=== PATIENT | male | born 1950 | race Caucasian/White ===

== ENCOUNTER 2017-03-17 06:44 | Day surgery (SDC) | payer MEDICARE, OTHER ==
[2017-03-13 10:33] VITALS: BMI 27.3
[~2017-03-17 06:44] MED LIST: LACTATED RINGERS 1,000 ML IV SCH
[2017-03-17 07:24] VITALS: TEMP 97.1
[2017-03-17 07:31] LABS: Glucose,Whole Blood 169 mg/dL (75-99)
[2017-03-17] MEDS ORDERED: LIDOCAINE 1% INJ 10MG/ML (20 ML MDV) ONE (07:54)
[2017-03-17] MEDS ORDERED: PROPOFOL 10 MG/ML 20 ML VIAL IV ONE (07:54)
--- NOTE | 2017-03-17 08:38 | P.PCN ---
Date of Procedure: 03/17/17 Procedure(s) Performed: Procedure: Total colonoscopy. Preoperative diagnosis: Screening for neoplasia, patient has history of polyps and family history of colon cancer. Postoperative diagnosis: Sigmoid diverticulosis with no evidence of acute diverticulitis, strictures, polyps or cancer. Preparation: HalfLytely prep. Sedation: Was provided by anesthesia. Brief clinical history: The patient is a 66-year-old male who is referred for this evaluation for screening for neoplasia. He has history of polyps and his last colonoscopy was in 2010. There is family history of colon cancer in his father who was diagnosed at age 87. At this time, the patient has no abdominal complaints, bleeding or anemia. Procedure: With the patient on his left lateral decubitus position and after informed consent and adequate sedation, the perianal area was inspected and it did not show any fissures or fistulas. There were no masses felt on digital rectal examination. The Olympus CFQ 160L video colonoscope was then inserted in the rectum in the usual fashion and advanced to the cecum. The preparation was good. The mucosa appeared healthy. Several diverticular orifices were seen scattered in the sigmoid with no evidence of acute diverticulitis or strictures. No polyps or tumors were seen. I retroflexed endoscope in the rectum before the endoscope was withdrawn. The patient tolerated the procedure well. Plan: The patient was reassured. Discussed dietary measures. He will follow up with you as planned and I recommended a repeat exam in 5 years.
[2017-03-17 08:40] VITALS: RESP 16
[2017-03-17 08:49] LABS: Glucose,Whole Blood 162 mg/dL (75-99)
[2017-03-17 09:52] VITALS: BP 141/76; PULSE 88
== END 2017-03-17 09:35 | disposition home or self-care (01) ==
LOC: ORWHC2ENDO 06:44
DX: Z12.11 Encounter for screening for malignant neoplasm of colon (principal); K57.30 Diverticulosis of large intestine without perforation or abscess without bleeding; Z86.010 Personal history of colon polyps; Z80.0 Family history of malignant neoplasm of digestive organs; I10 Essential (primary) hypertension; E78.5 Hyperlipidemia, unspecified; F17.200 Nicotine dependence, unspecified, uncomplicated; E11.9 Type 2 diabetes mellitus without complications; Z79.84 Long term (current) use of oral hypoglycemic drugs; Z85.828 Personal history of other malignant neoplasm of skin; Z79.899 Other long term (current) drug therapy
CPT/HCPCS: J2001; J2704; G0105

== ENCOUNTER 2018-10-10 14:28 | Emergency (ER) | payer MEDICARE, OTHER ==
[2018-10-10 14:36] VITALS: TEMP 98.1
[2018-10-10 14:39] LABS: Glucose,Whole Blood 184 mg/dL (75-99)
[2018-10-10] MEDS ORDERED: SODIUM CHLORIDE 0.9% 1,000 ML IV ONE (15:08)
--- NOTE | 2018-10-10 15:21 | ED ---
General Adult HPI - General Chief complaint: Recheck/Abnormal Lab/Rx Stated complaint: Elevated BS Time Seen by Provider: 10/10/18 14:54 Source: patient Mode of arrival: ambulatory Limitations: no limitations - History of Present Illness Initial comments: 68-year-old male patient presents to the emergency department today for complaints of elevated blood sugar. Patient states that over the last couple days of sugars have been reaching around 350. Patient states that he is also had mild headaches but has had that before when he has had elevated sugars. He denies any abdominal pain, nausea, or vomiting. Denies any constipation or diarrhea. Patient states he feels well. He does admit that he doesn't check his blood sugar regularly. His primary care physician did give him prescription for new blood sugar medication but he has not yet started this. Patient denies any recent rash, fever, chills, shortness breath, chest pain, abdominal pain, back pain, numbness, tingling, dizziness, weakness, hematuria, dysuria, urinary urgency, urinary frequency, headache, visual changes, or any other complaints. - Related Data Home Medications Medication Instructions Recorded Confirmed Gabapentin 900 mg PO BID 03/13/17 03/17/17 Glimepiride [Amaryl] 8 mg PO AC-BRKFST 03/13/17 03/17/17 Losartan [Cozaar] 50 mg PO DAILY 03/13/17 03/17/17 Pravastatin Sodium [Pravachol] 10 mg PO Q2D 03/13/17 03/17/17 metFORMIN HCL 1,000 mg PO BID 03/13/17 03/17/17 Allergies Allergy/AdvReac Type Severity Reaction Status Date / Time No Known Allergies Allergy Verified 10/10/18 14:36 Review of Systems ROS Statement: Those systems with pertinent positive or pertinent negative responses have been documented in the HPI. ROS Other: All systems not noted in ROS Statement are negative. Past Medical History Past Medical History: Cancer, Diabetes Mellitus, Hyperlipidemia, Hypertension Additional Past Medical History / Comment(s): HX SKIN CANCER History of Any Multi-Drug Resistant Organisms: None Reported Additional Past Surgical History / Comment(s): COLONOSCOPY. BILAT CATARACTS. LT CAROTID ENDATERECTOMY. PENILE IMPLANT Past Anesthesia/Blood Transfusion Reactions: No Reported Reaction Past Psychological History: No Psychological Hx Reported Smoking Status: Current every day smoker Past Alcohol Use History: None Reported Past Drug Use History: None Reported - Past Family History Father Family Medical History: Cancer General Exam Limitations: no limitations General appearance: alert, in no apparent distress, other (This is a well- developed, well-nourished adult male patient in no acute distress. Vital signs upon presentation are temperature 98.1F, pulse 98, respirations 20, blood pressure 115/68, pulse ox 95% on room air.) ENT exam: Present: normal exam, normal oropharynx, mucous membranes moist Respiratory exam: Present: normal lung sounds bilaterally. Absent: respiratory distress, wheezes, rales, rhonchi, stridor Cardiovascular Exam: Present: regular rate, normal rhythm, normal heart sounds. Absent: systolic murmur, diastolic murmur, rubs, gallop, clicks GI/Abdominal exam: Present: soft, normal bowel sounds. Absent: distended, tenderness, guarding, rebound, rigid Neurological exam: Present: alert, oriented X3, CN II-XII intact Psychiatric exam: Present: normal affect, normal mood Skin exam: Present: warm, dry, intact, normal color. Absent: rash Course Vital Signs 10/10/18 14:33 Temperature 98.1 F Pulse Rate 98 Respiratory 20 Rate Blood Pressure 115/68 O2 Sat by Pulse 95 Oximetry Medical Decision Making - Medical Decision Making 68-year-old male patient presents to the emergency department today for evaluation of elevated blood sugar. Upon arrival patient's blood sugar was 184 , did order basic labs. There was a mixup with the labwork patient did not want to wait for results. Blood sugar was rechecked after receiving IV fluids and was down to 107. Patient had no other symptoms and actually reported feeling well. Physical exam is unremarkable. Patient be discharged home to follow-up with his primary care physician. He did receive a prescription for diabetic medication he is to call his physician for further instructions regarding this tomorrow. Return parameters discussed in detail. He verbalizes understanding and agrees with this plan. - Lab Data Lab Results 10/10/18 10/10/18 Range/Units 14:31 16:43 POC Glucose (mg/dL) 184 H 107 H (75-99) mg/dL POC Glu Edger Runner ID Mei Lopez Disposition Clinical Impression: Hyperglycemia Disposition: HOME SELF-CARE Condition: Good Instructions: Diabetic Hyperglycemia (ED) Additional Instructions: Monitor your blood sugar closely. Call your primary care physician's office in the morning to ask about your diabetic medications. Increase fluids. Monitor your diet. Return immediately for any new, worsening, or concerning symptoms Is patient prescribed a controlled substance at d/c from ED?: No Referrals: Gabe Vela DO [Primary Care Provider] - 1-2 days Time of Disposition: 16:47
[2018-10-10 16:48] LABS: Glucose,Whole Blood 107 mg/dL (75-99)
[2018-10-10 17:05] VITALS: BP 139/86; PULSE 84; RESP 16
[2018-10-10 17:22] LABS: Basophils # (A) 0.1 k/uL (0-0.2); Basophils % (A) 1 %; Eosinophils # (A) 0.3 k/uL (0-0.7); Eosinophils % (A) 2 %; HCT 44.2 % (39.0-53.0); HGB 15.2 gm/dL (13.0-17.5); Lymphocytes # (A) 4.3 k/uL (1.0-4.8); Lymphocytes % (A) 42 %; MCH 32.9 pg (25.0-35.0); MCHC 34.3 g/dL (31.0-37.0); MCV 96.1 fL (80.0-100.0); Mean Platelet Volume 7.3; Monocytes # (A) 0.6 k/uL (0-1.0); Monocytes % (A) 5 %; Neutrophils % (A) 48 %; Platelet Count 248 k/uL (150-450); RDW 13.1 % (11.5-15.5); WBC 10.4 k/uL (3.8-10.6)
[2018-10-10 17:30] LABS: Appearance,Urine Clear (Clear); Bilirubin,Urine Negative (Negative); Blood,Urine Negative (Negative); Color,Urine Light Yellow; Glucose,Urine (UA) Negative (Negative); Ketones,Urine Negative (Negative); Leukocyte Esterase,Urine Negative (Negative); Nitrite,Urine Negative (Negative); PH, Urine 6.5 (5.0-8.0); Protein,Urine Negative (Negative); Specific Gravity,Urine 1.003 (1.001-1.035); Urobilinogen,Urine <2.0 mg/dL (<2.0)
[2018-10-10 17:33] LABS: Anion Gap 12 mmol/L; Blood Urea Nitrogen 22 mg/dL (9-20); Calcium 9.7 mg/dL (8.4-10.2); Carbon Dioxide 22 mmol/L (22-30); Chloride 105 mmol/L (98-107); Glucose 148 mg/dL (74-99); Potassium 4.5 mmol/L (3.5-5.1); Sodium 139 mmol/L (137-145)
== END 2018-10-10 17:00 | disposition home or self-care (01) ==
LOC: EC 14:28
DX: E11.65 Type 2 diabetes mellitus with hyperglycemia (principal); I10 Essential (primary) hypertension; E78.5 Hyperlipidemia, unspecified; Z79.84 Long term (current) use of oral hypoglycemic drugs; Z79.899 Other long term (current) drug therapy; Z85.828 Personal history of other malignant neoplasm of skin
CPT/HCPCS: 36415; 80048; 81003; 85025; 96360; 99283

== ENCOUNTER → 2018-10-11 | Outpatient (CLI) | payer MEDICARE, OTHER ==
--- NOTE | 2018-10-11 08:18 | CT ---
EXAMINATION TYPE: CT lumbar spine wo con DATE OF EXAM: 10/11/2018 7:39 AM COMPARISON: None HISTORY: Low back pain, numbness to Lt leg CT DLP: 748.6 mGycm Automated exposure control for dose reduction was used. Unenhanced CT of the lumbar spine was performed. Bone and soft tissue window settings are submitted as well as coronal and sagittal reconstructions. L1-L2: Hypertrophic change of the facets and circumferential disc bulging. No foraminal encroachment or canal stenosis. L2-L3: Facet arthropathy and circumferential disc bulging. No canal stenosis or foraminal encroachmen t. L3-L4: Diffuse disc bulging with hypertrophy of the facets and ligamentum flavum. More advanced facet arthropathy noted. Mild bilateral foraminal encroachment and mild central stenosis suspected. L4-L5: Small focal central disc protrusion with displacement of the thecal sac. There is facet arthro mayra. Neural foramina demonstrate mild narrowing bilaterally with hypertrophic change of the facets. . L5-S1: Normal disc space height. No disc herniation protrusion or central stenosis. Facet joint arth ropathy. No evidence for foraminal encroachment. Atherosclerotic change of the vasculature within the infrarenal abdominal aortic aneurysm which is no t entirely included in the [id number] but measures at least 3.2 cm. Dedicated ultrasound or abdomi nal CT recommended. Mild multilevel hypertrophic change and degenerative disc disease. IMPRESSION: 1. Multilevel hypertrophic change and degenerative disc disease with multilevel facet arthropathy and disc bulging resulting in mild central stenosis L3-L4 with mild bilateral foraminal encroachment. 2. Small focal central disc protrusion with mild displacement of thecal sac at L4-L5. 3. There is a abdominal aortic aneurysm which is incompletely imaged. Recommend follow-up ultrasound or CT scan. A Yellow level critical message alert has been initiated for Derick Dockery MD via the [facility] Critical Results System on 10/11/2018 8:14 AM. This message alert has been sent to Derick hernandez MD via the preferences provided by the clinician for the receipt of Radiology Critical Findings. Message ID [id number].
== END | disposition home or self-care (01) ==
LOC: RADCTMAIN 07:24
PROVIDERS: ATTEND Physical Medicine & Rehabilitation
DX: M48.061 Spinal stenosis, lumbar region without neurogenic claudication (principal); M51.26 Other intervertebral disc displacement, lumbar region; M51.36 Other intervertebral disc degeneration, lumbar region; M46.96 Unspecified inflammatory spondylopathy, lumbar region; M53.86 Other specified dorsopathies, lumbar region
CPT/HCPCS: 72131

== ENCOUNTER 2019-06-08 13:32 | Emergency (ER) | payer MEDICARE, OTHER ==
[2019-06-08 13:43] VITALS: TEMP 97.9
[2019-06-08 14:36] LABS: Basophils % (A) 0 %; Eosinophils # (A) 0.2 k/uL (0-0.7); Eosinophils % (A) 1 %; HCT 46.6 % (39.0-53.0); Lymphocytes # (A) 3.3 k/uL (1.0-4.8); Lymphocytes % (A) 20 %; MCHC 32.2 g/dL (31.0-37.0); MCV 99.5 fL (80.0-100.0); Macrocytosis Slight; Mean Platelet Volume 6.3; Monocytes # (A) 0.9 k/uL (0-1.0); Monocytes % (A) 5 %; Neutrophils # (A) 11.9 k/uL (1.3-7.7); Neutrophils % (A) 72 %; Platelet Count 287 k/uL (150-450); RBC 4.69 m/uL (4.30-5.90); RDW 14.5 % (11.5-15.5); WBC 16.5 k/uL (3.8-10.6)
[2019-06-08 14:45] LABS: Albumin 4.4 g/dL (3.5-5.0); Calcium 9.5 mg/dL (8.4-10.2); Potassium 4.2 mmol/L (3.5-5.1); Total Bilirubin 0.7 mg/dL (0.2-1.3)
[2019-06-08 14:49] LABS: Appearance,Urine Clear (Clear); Bilirubin,Urine Negative (Negative); Blood,Urine Trace (Negative); Color,Urine Yellow; Glucose,Urine (UA) Negative (Negative); Ketones,Urine Negative (Negative); Leukocyte Esterase,Urine Negative (Negative); Mucus,Urine Rare /hpf; Nitrite,Urine Negative (Negative); PH, Urine 5.5 (5.0-8.0); Protein,Urine Negative (Negative); RBC,Urine 1 /hpf (0-5); Specific Gravity,Urine 1.012 (1.001-1.035); Squamous Epithelial Cell,Urine <1 /hpf (0-4); Urobilinogen,Urine <2.0 mg/dL (<2.0); WBC,Urine 2 /hpf (0-5)
--- NOTE | 2019-06-08 14:57 | XR ---
EXAMINATION TYPE: XR KUB DATE OF EXAM: 06/08/2019 COMPARISON: NONE HISTORY: Abdominal pain predominantly in the right lower quadrant for approximately 2 days. TECHNIQUE: Upright abdominal radiograph was obtained FINDINGS: There are scattered air-fluid levels throughout the abdomen within prominent loops of small bowel measuring up to 3.0 cm, upper limits of normal. These although are seen within the abdomen pre dominantly within the right lower quadrant. Lung bases are well aerated. Osseous structures are gross ly intact with moderate degenerative change at the lumbosacral junction. Mild degree colonic fecal st asis of the left hemicolon. No gross evidence of pneumoperitoneum. IMPRESSION: Scattered air-fluid levels throughout prominent loops of small bowel may relate to small bowel ileus or early small bowel obstruction.
[2019-06-08 15:32] LABS: Glucose,Whole Blood 87 mg/dL (75-99)
--- NOTE | 2019-06-08 15:33 | CT ---
EXAMINATION TYPE: CT abdomen pelvis w con DATE OF EXAM: 06/08/2019 COMPARISON: NONE HISTORY: 68-year-old male RLQ and suprapubic pain for 3-4 days TECHNIQUE: Contiguous axial scanning of the abdomen and pelvis following administration of 100 ml Iso familia 300 IV contrast. Delayed images through the kidneys and coronal/sagittal reconstructions perform ed. CT DLP: 953.6 mGycm Automated exposure control for dose reduction was used. FINDINGS: Heart normal size without pericardial effusion. Coronary vessel calcifications are present in remarka ble for coronary artery disease. Subpleural reticular changes in the visualized lower lungs suggests interstitial fibrosis. No evi h oneycombing. Some scattered groundglass is also demonstrated. Tiny hiatal hernia. No focal liver lesion or biliary ductal dilatation. Portal venous system is patent. Gallbladder, adrenal glands, spleen, and pancreas appear within normal limits. A few scattered subcentimeter hypodensities in both kidneys too small for accurate CT characterizatio n, likely tiny cysts. There is an area of rounded hypodensity within the lateral right kidney best seen on delayed images, refer to axial image 43. No dilated small bowel, free fluid, or free air. No mesenteric or retroperitoneal lymphadenopathy. There is liquid stool seen throughout the colon with moderate generalized wall thickening and scatter ed mucosal hyperemia extending from the cecum to the distal sigmoid. Moderate atherosclerotic changes within the abdominal aorta and iliac arteries with fusiform aneurysm measuring up to 5.0 x 3.7 cm and a more focal saccular aneurysm from the posterior wall at this leve l measuring 1.9 x 1.7 cm, axial image 50 and sagittal image 61. Moderate to severe atherosclerotic calcifications within the iliac arteries. Bladder is distended. Fluid reservoir just deep to the left inguinal ring. The reservoir is distended up to 5.5 cm and has some mass effect onto the anterior left lateral wall of the bladder. Otherwise, no abnormal fluid collection in pelvis or pelvic lymphadenopathy. Bones: Mild degenerative changes at the hips. Right L5 hemisacralization. Mild degenerative disc dise ase with bulging discs at multiple levels. Facet arthropathy mid to lower lumbar spine. IMPRESSION: 1. Rounded hypovascular area lateral right kidney, apparent on the delayed kidney images. This appear ance can be seen in setting of pyelonephritis. Clinically correlate. 2. Moderate wall thickening of the colon extending from the cecum to the distal sigmoid along with li quid stool. Findings compatible with a nonspecific infectious or inflammatory colitis. 3. Some reticulations and groundglass in the lower lungs could represent chronic interstitial fibrosi s or an interstitial pneumonitis. Clinically correlate.
[2019-06-08 15:34] VITALS: BP 136/72; PULSE 67; RESP 18
[2019-06-08] MEDS ORDERED: ACET/COD 300 MG/30 MG STARTER PACK 6 TAB BTL PO STA (16:04)
[2019-06-08] MEDS ORDERED: MORPHINE SULFATE 2 MG/ML SYRINGE IVP STA (16:04)
--- NOTE | 2019-06-08 16:06 | ED ---
Abdominal Pain HPI - General Chief Complaint: Abdominal Pain Stated Complaint: abd pain Time Seen by Provider: 06/08/19 14:10 Source: patient Mode of arrival: ambulatory Limitations: no limitations - History of Present Illness Initial Comments: 68-year-old male presenting today for chief complaint of lower abdominal pain. Patient states that he's had lower abdominal pain on and off for the past 3-4 days. He states he does have history of kidney stones but this pain does not feel similar he denies back pain. Patient states he does have history of d iverticulitis. Patient states he did have diarrhea for the past 2 days he states he does have somewhat of chronic diarrhea. Patient denies fever or recent travel denies melena hematochezia or vomiting. She states the pain is not constant and comes and goes and is of the lower abdomen he denies any testicular pain or swelling. Patient states the pain persisted today he thought it would be best he presented [facility] sure it wasn't "cancer or something". Remaining review of systems negative patient appears well no signs of acute distress denies any current pain. - Related Data Home Medications Medication Instructions Recorded Confirmed Gabapentin 600 mg PO TID 03/13/17 06/08/19 Glimepiride [Amaryl] 4 mg PO AC-BID 03/13/17 06/08/19 metFORMIN HCL 1,000 mg PO BID 03/13/17 06/08/19 Losartan Potassium 100 mg PO DAILY 06/08/19 06/08/19 Previous Rx's Medication Instructions Recorded Ciprofloxacin HCl [Cipro] 500 mg PO Q12H 7 Days #14 tab 06/08/19 metroNIDAZOLE [Flagyl] 500 mg PO Q8HR 7 Days #21 tab 06/08/19 Allergies Allergy/AdvReac Type Severity Reaction Status Date / Time No Known Allergies Allergy Verified 06/08/19 14:01 Review of Systems ROS Statement: Those systems with pertinent positive or pertinent negative responses have been documented in the HPI. ROS Other: All systems not noted in ROS Statement are negative. Past Medical History Past Medical History: Cancer, Diabetes Mellitus, Hyperlipidemia, Hypertension Additional Past Medical History / Comment(s): HX SKIN CANCER, AAA History of Any Multi-Drug Resistant Organisms: None Reported Additional Past Surgical History / Comment(s): COLONOSCOPY. BILAT CATARACTS. LT CAROTID ENDATERECTOMY. PENILE IMPLANT Past Anesthesia/Blood Transfusion Reactions: No Reported Reaction Past Psychological History: No Psychological Hx Reported Smoking Status: Current every day smoker Past Alcohol Use History: None Reported Past Drug Use History: None Reported - Past Family History Father Family Medical History: Cancer General Exam - General Exam Comments Initial Comments: General: The patient is awake and alert, in no distress, and does not appear acutely ill. Eye: Pupils are equal, round and reactive to light, extra-ocular movements are intact. No nystagmus. There is normal conjunctiva bilaterally. No signs of icterus. Cardiovascular: There is a regular rate and rhythm. No murmur, rub or gallop is appreciated. Respiratory: Lungs are clear to auscultation, respirations are non-labored, breath sounds are equal. No wheezes, stridor, rales, or rhonchi. Gastrointestinal: Soft, non-distended, there is mild tenderness to palpation deeply of the lower abdomen remaining abdomen including the right upper and left upper and epigastric region without tenderness. without masses or organomegaly noted. There is no rebound or guarding present. No CVA tenderness. Bowel sounds are unremarkable. Musculoskeletal: Normal ROM, no tenderness. Strength 5/5. Sensation intact. Pulses equal bilaterally 2+. Neurological: A&O x 3. CN II-XII intact, There are no obvious motor or sensory deficits. Coordination appears grossly intact. Speech is normal. Skin: Skin is warm and dry and no rashes or lesions are noted. No LE edema. Psychiatric: Cooperative, appropriate mood & affect, normal judgment. Limitations: no limitations Course Vital Signs 06/08/19 06/08/19 13:41 15:30 Temperature 97.9 F Pulse Rate 92 67 Respiratory 16 18 Rate Blood Pressure 125/63 136/72 O2 Sat by Pulse 96 98 Oximetry Medical Decision Making - Medical Decision Making Very well-appearing 68-year-old male. Complaints of lower abdominal pain, infectious versus inflammatory changes are noted of the distal colon on examination. I feel this is consistent with patient's area of pain. Patient has leukocytosis. No fever. Signs and laboratory studies otherwise are within acceptable limits. After discussing the case reviewing imaging studies with attending provider Dr. Agrawal we feel patient is stable for discharge with antibiotic regimen close primary care follow-up in GI consultation. Patient is agreeable to this plan. Return parameters were discussed. I did discuss incidental findings of possible kidney cyst, lung lesions as well as abdominal aortic aneurysm which patient states he monitors every [address] Stephon aguilera And pt is aware. Patient discharged appearing well - Lab Data Result diagrams: 06/08/19 13:55 06/08/19 13:55 Lab Results 06/08/19 06/08/19 06/08/19 Range/Units 13:55 13:55 13:55 WBC 16.5 H (3.8-10.6) k/uL RBC 4.69 (4.30-5.90) m/uL Hgb 15.0 (13.0-17.5) gm/dL Hct 46.6 (39.0-53.0) % MCV 99.5 (80.0-100.0) fL MCH 32.0 (25.0-35.0) pg MCHC 32.2 (31.0-37.0) g/dL RDW 14.5 (11.5-15.5) % Plt Count 287 (150-450) k/uL Neutrophils % 72 % Lymphocytes % 20 % Monocytes % 5 % Eosinophils % 1 % Basophils % 0 % Neutrophils # 11.9 H (1.3-7.7) k/uL Lymphocytes # 3.3 (1.0-4.8) k/uL Monocytes # 0.9 (0-1.0) k/uL Eosinophils # 0.2 (0-0.7) k/uL Basophils # 0.0 (0-0.2) k/uL Macrocytosis Slight Sodium 142 (137-145) mmol/L Potassium 4.2 (3.5-5.1) mmol/L Chloride 109 H (98-107) mmol/L Carbon Dioxide 24 (22-30) mmol/L Anion Gap 9 mmol/L BUN 19 (9-20) mg/dL Creatinine 1.00 (0.66-1.25) mg/dL Est GFR (CKD-EPI)AfAm 88 (>60 ml/min/1.73 sqM) Est GFR (CKD-EPI)NonAf 76 (>60 ml/min/1.73 sqM) Glucose 53 L (74-99) mg/dL POC Glucose (mg/dL) (75-99) mg/dL POC Glu Coroner Forensic Technician ID Calcium 9.5 (8.4-10.2) mg/dL Total Bilirubin 0.7 (0.2-1.3) mg/dL AST 18 (17-59) U/L ALT 16 L (21-72) U/L Alkaline Phosphatase 87 (38-126) U/L Total Protein 8.0 (6.3-8.2) g/dL Albumin 4.4 (3.5-5.0) g/dL Amylase 75 (30-110) U/L Lipase 80 (23-300) U/L Urine Color Yellow Urine Appearance Clear (Clear) Urine pH 5.5 (5.0-8.0) Ur Specific [place] 1.012 (1.001-1.035) Urine Protein Negative (Negative) Urine Glucose (UA) Negative (Negative) Urine Ketones Negative (Negative) Urine Blood Trace H (Negative) Urine Nitrite Negative (Negative) Urine Bilirubin Negative (Negative) Urine Urobilinogen <2.0 (<2.0) mg/dL Ur Leukocyte Esterase Negative (Negative) Urine RBC 1 (0-5) /hpf Urine WBC 2 (0-5) /hpf Ur Squamous Epith Cells <1 (0-4) /hpf Urine Mucus Rare H (None) /hpf 06/08/19 Range/Units 15:30 WBC (3.8-10.6) k/uL RBC (4.30-5.90) m/uL Hgb (13.0-17.5) gm/dL Hct (39.0-53.0) % MCV (80.0-100.0) fL MCH (25.0-35.0) pg MCHC (31.0-37.0) g/dL RDW (11.5-15.5) % Plt Count (150-450) k/uL Neutrophils % % Lymphocytes % % Monocytes % % Eosinophils % % Basophils % % Neutrophils # (1.3-7.7) k/uL Lymphocytes # (1.0-4.8) k/uL Monocytes # (0-1.0) k/uL Eosinophils # (0-0.7) k/uL Basophils # (0-0.2) k/uL Macrocytosis Sodium (137-145) mmol/L Potassium (3.5-5.1) mmol/L Chloride (98-107) mmol/L Carbon Dioxide (22-30) mmol/L Anion Gap mmol/L BUN (9-20) mg/dL Creatinine (0.66-1.25) mg/dL Est GFR (CKD-EPI)AfAm (>60 ml/min/1.73 sqM) Est GFR (CKD-EPI)NonAf (>60 ml/min/1.73 sqM) Glucose (74-99) mg/dL POC Glucose (mg/dL) 87 (75-99) mg/dL POC Glu Coroner Forensic Technician ID Calcium (8.4-10.2) mg/dL Total Bilirubin (0.2-1.3) mg/dL AST (17-59) U/L ALT (21-72) U/L Alkaline Phosphatase (38-126) U/L Total Protein (6.3-8.2) g/dL Albumin (3.5-5.0) g/dL Amylase (30-110) U/L Lipase (23-300) U/L Urine Color Urine Appearance (Clear) Urine pH (5.0-8.0) Ur Specific [place] (1.001-1.035) Urine Protein (Negative) Urine Glucose (UA) (Negative) Urine Ketones (Negative) Urine Blood (Negative) Urine Nitrite (Negative) Urine Bilirubin (Negative) Urine Urobilinogen (<2.0) mg/dL Ur Leukocyte Esterase (Negative) Urine RBC (0-5) /hpf Urine WBC (0-5) /hpf Ur Squamous Epith Cells (0-4) /hpf Urine Mucus (None) /hpf Disposition Clinical Impression: Abdominal aortic aneurysm (AAA) 3.0 cm to 5.5 cm in diameter in male, Colitis, Kidney lesion, Abdominal pain, Diarrhea Disposition: HOME SELF-CARE Condition: Good Instructions (If sedation given, give patient instructions): Abdominal Pain (ED) Additional Instructions: Please use medication as discussed. Please follow-up with family doctor in the next 2 days, please request records. Follow- up with both GI and Dr. Landry (as scheduled for Dr. Galindo). Please return to emergency room if the symptoms in crease or worsen or for any other concerns, more consistent, persistent or increasing pain--any concerning symptoms. Prescriptions: Ciprofloxacin HCl [Cipro] 500 mg PO Q12H 7 Days #14 tab metroNIDAZOLE [Flagyl] 500 mg PO Q8HR 7 Days #21 tab Is patient prescribed a controlled substance at d/c from ED?: No Referrals: Gabe Vela DO [Primary Care Provider] - 1-2 days Sabi Stein MD [STAFF PHYSICIAN] - 1-2 days Time of Disposition: 16:06
== END 2019-06-08 16:40 | disposition home or self-care (01) ==
LOC: EC 13:32
DX: I71.4 Abdominal aortic aneurysm, without rupture (principal); K52.9 Noninfective gastroenteritis and colitis, unspecified; N28.9 Disorder of kidney and ureter, unspecified; D72.829 Elevated white blood cell count, unspecified; E11.9 Type 2 diabetes mellitus without complications; I10 Essential (primary) hypertension; F17.200 Nicotine dependence, unspecified, uncomplicated; Z79.84 Long term (current) use of oral hypoglycemic drugs; Z79.899 Other long term (current) drug therapy; Z85.828 Personal history of other malignant neoplasm of skin
CPT/HCPCS: 36415; 80053; 82150; 83690; 85025; 81001; 74018; 74177; 99284; 96374; J2270; Q9967

== ENCOUNTER → 2019-07-27 | Outpatient (CLI) | payer MEDICARE, OTHER ==
--- NOTE | 2019-07-27 10:44 | XR ---
EXAMINATION TYPE: XR chest 2V DATE OF EXAM: 07/27/2019 COMPARISON: None INDICATION: Short of breath, cough TECHNIQUE: Frontal and lateral views of the chest are obtained. FINDINGS: The heart size is normal. The pulmonary vasculature is normal. Mild lingular infiltrate appears to be present with some silhouetting the cardiac apex.. IMPRESSION: 1. Correlate for mild infiltrate within the lingula.
== END | disposition home or self-care (01) ==
LOC: RADXRMAIN 10:26
PROVIDERS: ATTEND Family Medicine
DX: J44.0 Chronic obstructive pulmonary disease with (acute) lower respiratory infection (principal)
CPT/HCPCS: 71046

== ENCOUNTER → 2019-08-23 | Outpatient (CLI) | payer MEDICARE, OTHER ==
--- NOTE | 2019-08-23 14:46 | XR ---
EXAMINATION TYPE: XR chest 2V DATE OF EXAM: 08/23/2019 COMPARISON: 07/27/2019 HISTORY: Consolidation. Follow-up exam. Shortness of breath. TECHNIQUE: Frontal and lateral views of the chest are obtained. FINDINGS: There is diffuse interstitial prominence. Improved aeration in the lingula. Cardiomediasti nal silhouette is within normal limits. Osseous structures are grossly intact with very minimal degen erative changes of the thoracic spine. Mild diffuse osseous demineralization seen throughout. No siza ble pneumothorax or pleural effusion. IMPRESSION: Improved aeration of the lingula with no residual focal opacity. Diffuse interstitial pr ominence appears chronic and underlying interstitial lung disease and/or fibrosis is possible. This c ould be further evaluated with high-resolution chest CT.
== END | disposition home or self-care (01) ==
LOC: RADXRMAIN 14:22
PROVIDERS: ATTEND Family Medicine
DX: R91.8 Other nonspecific abnormal finding of lung field (principal)
CPT/HCPCS: 71046

== ENCOUNTER → 2019-10-03 | Outpatient (CLI) | payer MEDICARE, OTHER ==
--- NOTE | 2019-10-03 13:47 | CT ---
EXAMINATION TYPE: CT chest wo con DATE OF EXAM: 10/03/2019 COMPARISON: None HISTORY: SOB CT DLP: 859.5 mGycm High-resolution noncontrast CT of the chest was performed with the patient in the prone and supine po sitions. Lung and mediastinal window settings are submitted. The lung volumes are somewhat diminished. There is scattered subpleural fibrosis seen bilaterally wit hin the upper mid and lower lung zones. Correlate for idiopathic pulmonary fibrosis. Scattered emphys ematous changes are noted. No evidence for nodule or mass. No focal infiltrate or pleural effusion. D o not see evidence for bronchiectasis. AP window adenopathy measuring 1.4 cm short axis. Subcarinal a denopathy measuring 1.3 cm short axis. Multiple smaller subcentimeter lymph nodes seen within the med iastinum. The heart is mildly prominent. IMPRESSION: There is scattered subpleural fibrosis seen bilaterally within the upper mid and lower rené ng zones. Correlate for idiopathic pulmonary fibrosis.
== END | disposition home or self-care (01) ==
LOC: RADCTMAIN 13:14
PROVIDERS: ATTEND Family Medicine
DX: J84.10 Pulmonary fibrosis, unspecified (principal); J84.9 Interstitial pulmonary disease, unspecified
CPT/HCPCS: 71250

== ENCOUNTER 2020-08-13 07:28 | Day surgery (SDC) | payer MEDICARE, OTHER ==
[2020-08-09 15:25] VITALS: BMI 26.2
[~2020-08-13 07:28] MED LIST changes: +LIDOCAINE 1% (10MG/ML) FOR IV START INTRADERMA PRN
[2020-08-13 07:49] VITALS: TEMP 96.6
[2020-08-13 07:57] LABS: Glucose,Whole Blood 109 mg/dL (75-99)
[2020-08-13] MEDS ORDERED: PROPOFOL 10 MG/ML 20 ML VIAL IV ONE (08:13)
[2020-08-13] MEDS ORDERED: LIDOCAINE 1% INJ 10MG/ML (20 ML MDV) ONE (08:13)
[2020-08-13] MEDS ORDERED: MIDAZOLAM 2 MG/2 ML VIAL ONE (08:13)
--- NOTE | 2020-08-13 08:37 | P.PCN ---
Date of Procedure: 08/13/20 Description of Procedure: BRIEF HISTORY: Patient is a 69-year-old male who was seen in the outpatient setting with complaints of loss of appetite, weight loss and nausea. Patient lost approximately 10 pounds. Since that time she's been able to put on some weight. He was started on omeprazole therapy. PROCEDURE PERFORMED: Esophagogastroduodenoscopy with biopsy. PREOPERATIVE DIAGNOSIS: Loss of appetite, unintentional weight loss, nausea. ESTIMATED BLOOD LOSS: Minimal. IV sedation per anesthesia. PROCEDURE: After informed consent was obtained, the patient was brought into the endoscopy unit. IV sedation was administered by Anesthesia under continuous monitoring. In itially the Olympus GIF-190 video endoscope was inserted into the mouth. Esophagus intubated without any difficulty. It was gradually advanced into the stomach and duodenum and carefully examined. The bulb and the second part of the duodenum appeared normal, with biopsies taken. The scope at this time was withdrawn to the stomach, adequately insufflated with air, and upon careful examination, mucosa of the antrum, body, cardia and the fundus appeared normal, except for some scattered punctate erythema with biopsies of the antrum and body taken. The scope was then withdrawn into the esophagus. The GE junction was located at 39 cm from the incisors, with some salmon-colored mucosa noted just proximal to the GE junction suspicious for Self's esophagus with biopsies of the GE junction taken. The esophagus otherwise appeared normal. There were no erosions or ulcerations seen and the patient tolerated the procedure well. IMPRESSION: 1. Mild gastritis. 2. 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 3. Biopsies of the duodenum, antrum and body and GE junction. RECOMMENDATIONS: The findings of this examination were discussed with the patient. Okay to resume diet. Okay to resume medications. Would continue omeprazole 20 mg daily as patient's weight loss has improved. Patient reports a scheduled computed tomography scan prior to follow up with his primary care physician. If Self's esophagus is seen on biopsy would recommend repeat EGD in 2 years for surveillance.
[2020-08-13 08:40] VITALS: RESP 18
[2020-08-13 08:51] VITALS: BP 117/60; PULSE 71
== END 2020-08-13 09:04 | disposition home or self-care (01) ==
LOC: ORWHC2ENDO 07:28
PROVIDERS: ATTEND Internal Medicine
DX: K29.50 Unspecified chronic gastritis without bleeding (principal); K22.8 Other specified diseases of esophagus; E11.9 Type 2 diabetes mellitus without complications; I10 Essential (primary) hypertension; J84.10 Pulmonary fibrosis, unspecified; F17.200 Nicotine dependence, unspecified, uncomplicated; Z79.84 Long term (current) use of oral hypoglycemic drugs; Z79.899 Other long term (current) drug therapy; Z98.890 Other specified postprocedural states; Z98.41 Cataract extraction status, right eye; Z98.42 Cataract extraction status, left eye; Z98.62 Peripheral vascular angioplasty status; Z96.0 Presence of urogenital implants; Z80.0 Family history of malignant neoplasm of digestive organs
CPT/HCPCS: 88305; 43239; J2250; J2001; J2704

== ENCOUNTER → 2020-08-17 | Outpatient (CLI) | payer MEDICARE, OTHER ==
[2020-08-17 12:23] LABS: African American GFR (CKD) >90 (>60 ml/min/1.73 sqM); Blood Urea Nitrogen 17 mg/dL (9-20); Non-African American GFR(CKD) 81 (>60 ml/min/1.73 sqM)
--- NOTE | 2020-08-17 16:09 | CT ---
EXAMINATION TYPE: CT abdomen w con DATE OF EXAM: 08/17/2020 COMPARISON: CT 06/08/2019 HISTORY: Right upper quadrant pain, weight loss. CT DLP: 892 mGycm Automated exposure control for dose reduction was used. TECHNIQUE: Helical acquisition of images was performed from the lung bases through the top of iliac crest to include entire abdomen. CONTRAST: Performed with Oral Contrast and with IV Contrast, patient injected with 100 mL of Isovue M300. FINDINGS: There is an infrarenal abdominal aortic aneurysm measuring 5.7 cm which is increased from 5 cm on prior exam, mural calcification, luminal plaque is also present, excrescence extends posterior laterally to the right as on prior which may be agency service representative of focal thrombosis LUNG BASES: Interstitial changes are present at the lung bases similar to prior exam, no pleural or p ericardial effusion LIVER/GB: Liver shows low attenuation likely due to hepatic steatosis, gallbladder is normal. PANCREAS: No significant abnormality is seen. SPLEEN: No significant abnormality is seen. ADRENALS: No significant abnormality is seen. KIDNEYS: No significant abnormality is seen. BOWEL: No significant abnormality is seen. The appendix is normal. LYMPH NODES: No significant abnormality is appreciated. OSSEOUS STRUCTURES: No significant abnormality is seen. FREE AIR: No Free Air visible ASCITES: None visible. RETROPERITONEAL ADENOPATHY: No Retroperitoneal Adenopathy visible. OTHER: IMPRESSION: INTERSTITIAL LUNG DISEASE. ABDOMINAL AORTIC ANEURYSM IS INCREASED IN SIZE. HEPATIC STEATOSIS.
== END | disposition home or self-care (01) ==
LOC: RADCTMAIN 11:31
PROVIDERS: ATTEND Family Medicine
DX: I71.4 Abdominal aortic aneurysm, without rupture (principal); K76.0 Fatty (change of) liver, not elsewhere classified
CPT/HCPCS: 82565; 84520; 74160; 36415; Q9967 ×2

== ENCOUNTER 2022-08-08 06:11 | Day surgery (SDC) | payer MEDICARE, OTHER ==
[2022-08-06 11:06] VITALS: BMI 25.7
[2022-08-08] MEDS ORDERED: LACTATED RINGERS 1,000 ML IV SCH (06:29)
[2022-08-08 06:36] VITALS: TEMP 96.9
[2022-08-08 06:48] LABS: Glucose,Whole Blood 103 mg/dL (70-110)
[2022-08-08] MEDS ORDERED: LIDOCAINE 2% INJ 20 MG/ML (2 ML VIAL) ONE (07:15)
[2022-08-08] MEDS ORDERED: PROPOFOL 10 MG/ML 20 ML VIAL IV ONE (07:15)
--- NOTE | 2022-08-08 07:36 | P.PCN ---
Date of Procedure: 08/08/22 Procedure(s) Performed: Brief history: Patient is a pleasant 71-year-old white male scheduled for an elective upper endoscopy as well as colonoscopy as a part of evaluation of uncinate history of GERD/intermittent diarrhea and iron deficiency anemia Procedure performed: Esophagogastroduodenoscopy with biopsy Colonoscopy with snare polypectomy Preoperative diagnosis: GERD/9 deficiency anemia Chronic diarrhea Anesthesia: MAC Procedure: After informed consent was obtained from the patient was brought into the endoscopy unit and IV sedation was administered by anesthesia under continuous monitoring. Initially upper endoscopy was done. The Olympus GF 160 video endoscope was inserted inserted into the mouth and esophagus intubated without any difficulty and was gradually advanced into the stomach and duodenum and carefully examined. The bulb and second part of the duodenum appeared normal. Biopsies were done from the duodenum to rule out celiac disease. The scope was then withdrawn into the stomach adequately insufflated with air and upon careful examination the antrum had mild gastritis and biopsies were done from this area. body, cardia and fundus appeared normal. The scope was then withdrawn into the esophagus. The GE junction was located at 40 cm to the incisors. Small sliding Hiatal hernia noted. There was a 5-6 mm tongue of Self's appearing mucosa just proximal to the GE junction which was biopsied. . Rest of the esophagus appeared normal. Patient tolerated the procedure well. At this time the patient continued to remain sedation. Initial digital rectal examination was normal. Olympus CF 160 video colonoscope was then inserted into the rectum and gradually advanced to the cecum without any difficulty. Careful examination was performed as the scope was gradually being withdrawn. The prep was excellent. The cecum appeared normal. Ascending colon there was a 5 mm polyp that was removed by snare polypectomy. Rest of the, ascending colon, transverse colon, descending colon, sigmoid colon and rectum appeared normal. Retroflexion was performed in the rectum and no lesions were noted. Patient tolerated the procedure well. Impression: 1. Upper endoscopy revealed small hiatal hernia, short segment Self's esophagus and mild gastritis 2. Colonoscopy revealed 5 mm ascending colon polyp status post polypectomy Recommendations: Findings of this examination were discussed with the patient as well as his family. He was advised to follow with the biopsy results. If the biopsy confirms the presence of Self's esophagus he was advised to have a repeat upper endoscopy in 3 years and recommend repeat colonoscopy in 5 years because of history of colon polyps
[2022-08-08 08:15] VITALS: BP 146/77; PULSE 76; RESP 16
== END 2022-08-08 10:58 | disposition home or self-care (01) ==
LOC: ORWHC2ENDO 06:11
PROVIDERS: ATTEND Internal Medicine Gastroenterology
DX: K29.50 Unspecified chronic gastritis without bleeding (principal); D12.2 Benign neoplasm of ascending colon; K44.9 Diaphragmatic hernia without obstruction or gangrene; K31.A0 Gastric intestinal metaplasia, unspecified; K21.9 Gastro-esophageal reflux disease without esophagitis; D50.9 Iron deficiency anemia, unspecified; I10 Essential (primary) hypertension; J84.10 Pulmonary fibrosis, unspecified; F17.200 Nicotine dependence, unspecified, uncomplicated; F12.10 Cannabis abuse, uncomplicated; E11.9 Type 2 diabetes mellitus without complications; M06.9 Rheumatoid arthritis, unspecified; Z79.84 Long term (current) use of oral hypoglycemic drugs; Z79.899 Other long term (current) drug therapy; Z86.010 Personal history of colon polyps
CPT/HCPCS: 88305; 45385; 43239; J2704; J2001